=== PATIENT | female | born 1955 | race Hispanic/Latino ===

== ENCOUNTER 2021-01-04 12:39 | Inpatient (IN) | payer BC ==
[~2021-01-04] VITALS: Ht 149.9 cm; Wt 101.1 kg
[2021-01-04] MEDS ORDERED: 0.9%NACL 1000ML 1,000 ML IV ONE ×2 (13:18→18:20)
[2021-01-04 13:38] LABS: BASOPHILS % (AUTO) 0.3 % (0.0-5.0); EOSINOPHILS % (AUTO) 0.3 % (0.0-8.0); HEMATOCRIT 22.1 % (36-48); LYMPHOCYTES % (AUTO) 20.8 % (21.0-51.0); MEAN CORPUSCULAR HGB CONC 32.6 g/dL (32.0-36.0); MEAN CORPUSCULAR VOLUME 92.1 fL (79-99); MONOCYTES % (AUTO) 3.8 % (3.0-13.0); NEUTROPHILS % (AUTO) 74.4 % (40.0-77.0); NUCLEATED RED BLOOD CELLS 0.2 % (0.0-0.19); PLATELET COUNT (AUTO) 105 K/uL (130-400); RED CELL DISTRIBUTION WIDTH 15.9 % (11.0-15.5); WHITE BLOOD COUNT (AUTO) 11.3 K/uL (4.8-10.8)
[2021-01-04 13:49] LABS: CREATININE 0.7 mg/dL (0.5-1.5); POTASSIUM 3.8 mmol/L (3.5-5.1)
[2021-01-04 13:53] LABS: ALBUMIN 2.7 g/dL (3.5-5.0); BILIRUBIN,TOTAL 0.5 mg/dL (0.2-1.0); TOTAL PROTEIN, SERUM 6.1 g/dL (6.0-8.3)
[2021-01-04] MEDS ORDERED: PANTOPRAZOLE 40 MG/VIAL ONE ×2 (14:51→15:42)
[2021-01-04] MEDS ORDERED: OCTREOTIDE ACETATE 100 MCG/ML AMP IV SCH (15:00)
[2021-01-04] MEDS ORDERED: PANTOPRAZOLE 40 MG/VIAL IVP SCH (15:00)
[2021-01-04 15:52] LABS: APPEARANCE,URINE Clear (CLEAR); BILIRUBIN,URINE Negative (NEGATIVE); COLOR,URINE Yellow (YELLOW); GLUCOSE, URINE (UA) Negative (NEGATIVE); KETONES,URINE 15 mg/dL (NEGATIVE); LEUKOCYTE ESTERASE ,URINE Negative (NEGATIVE); NITRATE,URINE Negative (NEGATIVE); OCCULT BLOOD,URINE Negative (NEGATIVE); PROTEIN,URINE Negative (NEGATIVE); UROBILINOGEN,URINE 0.2 mg/dL (0.2-1.0)
[2021-01-04 15:59] LABS: AMPHET/METH SCREEN,URINE NEGATIVE (NEGATIVE); BARBITURATE SCREEN, URINE NEGATIVE (NEGATIVE); BENZODIAZEPINES SCREEN,URINE NEGATIVE (NEGATIVE); CANNABINOID SCREEN,URINE NEGATIVE (NEGATIVE); COCAINE SCREEN,URINE NEGATIVE (NEGATIVE); OPIATE SCREEN,URINE NEGATIVE (NEGATIVE); PHENCYCLIDINE SCREEN,URINE NEGATIVE (NEGATIVE)
[2021-01-04] MEDS ORDERED: GLUCAGON 1MG KIT 1 MG ML IM PRN (16:00)
[2021-01-04] MEDS ORDERED: DEXTROSE 50%-WATER 50 ML DISP.SYRIN IV PRN (16:00)
[2021-01-04 16:21] LABS: INR 1.2 (0.85-1.15); PROTHROMBIN TIME 12.9 SEC (9.6-11.6)
[2021-01-04 16:23] LABS: PARTIAL THROMBOPLASTIN TIME 21.5 SEC (26.3-35.5)
[2021-01-04] MEDS ORDERED: INSULIN HUMULIN R 100 UNIT/ML 3ML SQ SCH (16:30)
[2021-01-04 16:39] LABS: HEMOGLOBIN A1C 7.1 % (4.0-6.0)
[2021-01-04] MEDS ORDERED: 0.9% NACL 250ML 250 ML IV ONE (18:50)
[2021-01-04] MEDS ORDERED: OCTREOTIDE ACETATE 100 MCG/ML AMP ONE (19:46)
[2021-01-04] MEDS ORDERED: 0.9%NACL 50ML 50 ML IV ONE (19:47)
[2021-01-04] MEDS: LEVOFLOXACIN 500 MG/D5W 100 ML 100 ML IV SCH (21:05)
[2021-01-04] MEDS: INSULIN HUMULIN R 100 UNIT/ML 3ML SQ SCH ×2 (21:06→23:31)
[2021-01-04 21:29] VITALS: BP 118/63
[2021-01-04 21:48] VITALS: BP 122/62
[2021-01-04 22:00] VITALS: BP 121/41
[2021-01-04] MEDS: METRONIDAZOLE 500MG/100ML BAG 100 ML IVPB SCH (22:16)
[2021-01-04] MEDS: OCTREOTIDE ACETATE 1,250 MCG in 0.9% NACL 250ML 250 ML IV SCH (22:18)
[2021-01-04] MEDS: 0.9%NACL 1000ML 1,000 ML IV SCH (22:19)
[2021-01-04 22:22] VITALS: BP 111/59
[2021-01-04] MEDS: PANTOPRAZOLE 40MG INJ 80 MG in 0.9%NACL 100ML 100 ML IVP SCH (22:48)
[2021-01-04 22:49] VITALS: BP 115/60
[2021-01-04 23:00] VITALS: BP 138/78
[2021-01-04 23:02] LABS: HEMATOCRIT 26.1 % (36-48)
[2021-01-05] VITALS (31 sets, daily range): BP systolic 93–154; BP diastolic 40–106
[2021-01-05 00:37] LABS: HEMATOCRIT 24.6 % (36-48)
[2021-01-05] MEDS: 0.9%NACL 1000ML 1,000 ML IV SCH (03:27)
[2021-01-05] MEDS: METRONIDAZOLE 500MG/100ML BAG 100 ML IVPB SCH ×3 (05:20→21:02)
[2021-01-05] MEDS: INSULIN HUMULIN R 100 UNIT/ML 3ML SQ SCH ×3 (06:00→20:41)
[2021-01-05 06:12] LABS: HEMATOCRIT 23.6 % (36-48)
[2021-01-05 06:24] LABS: CREATININE 0.7 mg/dL (0.5-1.5); POTASSIUM 3.9 mmol/L (3.5-5.1)
[2021-01-05] MEDS: PANTOPRAZOLE 40MG INJ 80 MG in 0.9%NACL 100ML 100 ML IVP SCH (08:15)
[2021-01-05] MEDS ORDERED: PROPOFOL 10 MG/ML 20ML VIAL IV ONE ×2 (11:09→11:29)
[2021-01-05] MEDS ORDERED: SUCCINYLCHOLINE 200MG/10ML SYR ONE (11:09)
[2021-01-05] MEDS ORDERED: GLYCOPYRROLATE 1 MG/5 ML SYRINGE ONE (11:11)
[2021-01-05] MEDS ORDERED: LIDOCAINE HCL 1% 20 ML VIAL ONE (11:12)
[2021-01-05] MEDS ORDERED: EPINEPHRINE PF 1MG AMP ONE (11:27)
[2021-01-05 13:27] LABS: BASOPHILS % (AUTO) 0.3 % (0.0-5.0); EOSINOPHILS % (AUTO) 0.5 % (0.0-8.0); HEMATOCRIT 23.2 % (36-48); LYMPHOCYTES % (AUTO) 21.3 % (21.0-51.0); MEAN CORPUSCULAR HEMOGLOBIN 29.8 pg (27.0-33.0); MEAN CORPUSCULAR HGB CONC 33.6 g/dL (32.0-36.0); MEAN CORPUSCULAR VOLUME 88.5 fL (79-99); MONOCYTES % (AUTO) 6.1 % (3.0-13.0); NEUTROPHILS % (AUTO) 71.4 % (40.0-77.0); NUCLEATED RED BLOOD CELLS 0.3 % (0.0-0.19); PLATELET COUNT (AUTO) 103 K/uL (130-400); RED BLOOD CELL COUNT(AUTO) 2.62 MIL/uL (4.00-5.50); RED CELL DISTRIBUTION WIDTH 16.4 % (11.0-15.5); WHITE BLOOD COUNT (AUTO) 7.5 K/uL (4.8-10.8)
[2021-01-05] MEDS: LEVOFLOXACIN 500 MG/D5W 100 ML 100 ML IV SCH (15:37)
[2021-01-05] MEDS: PANTOPRAZOLE 40 MG/VIAL IVP SCH (20:20)
[2021-01-05 21:29] LABS: BASOPHILS % (AUTO) 0.3 % (0.0-5.0); EOSINOPHILS % (AUTO) 0.6 % (0.0-8.0); LYMPHOCYTES % (AUTO) 23.5 % (21.0-51.0); MEAN CORPUSCULAR HEMOGLOBIN 29.9 pg (27.0-33.0); MEAN CORPUSCULAR HGB CONC 33.8 g/dL (32.0-36.0); MEAN CORPUSCULAR VOLUME 88.6 fL (79-99); MONOCYTES % (AUTO) 5.6 % (3.0-13.0); NEUTROPHILS % (AUTO) 69.5 % (40.0-77.0); NUCLEATED RED BLOOD CELLS 0.4 % (0.0-0.19); PLATELET COUNT (AUTO) 104 K/uL (130-400); RED BLOOD CELL COUNT(AUTO) 2.71 MIL/uL (4.00-5.50); RED CELL DISTRIBUTION WIDTH 16.2 % (11.0-15.5); WHITE BLOOD COUNT (AUTO) 7.7 K/uL (4.8-10.8)
[2021-01-06] VITALS (14 sets, daily range): BP systolic 104–136; BP diastolic 45–76
[2021-01-06 04:55] LABS: BASOPHILS % (AUTO) 0.2 % (0.0-5.0); EOSINOPHILS % (AUTO) 1.3 % (0.0-8.0); HEMATOCRIT 23.1 % (36-48); LYMPHOCYTES % (AUTO) 31.3 % (21.0-51.0); MEAN CORPUSCULAR HEMOGLOBIN 29.2 pg (27.0-33.0); MEAN CORPUSCULAR HGB CONC 32.9 g/dL (32.0-36.0); MEAN CORPUSCULAR VOLUME 88.8 fL (79-99); MONOCYTES % (AUTO) 7.7 % (3.0-13.0); NEUTROPHILS % (AUTO) 59.1 % (40.0-77.0); NUCLEATED RED BLOOD CELLS 0.9 % (0.0-0.19); PLATELET COUNT (AUTO) 113 K/uL (130-400); WHITE BLOOD COUNT (AUTO) 4.7 K/uL (4.8-10.8)
[2021-01-06] MEDS: METRONIDAZOLE 500MG/100ML BAG 100 ML IVPB SCH ×3 (05:08→20:43)
[2021-01-06 05:16] LABS: ALBUMIN 2.6 g/dL (3.5-5.0); BILIRUBIN,TOTAL 0.4 mg/dL (0.2-1.0); CREATININE 0.5 mg/dL (0.5-1.5); POTASSIUM 3.5 mmol/L (3.5-5.1)
[2021-01-06 08:14] LABS: HEPATITIS B CORE IGM Negative (Negative); HEPATITIS Bs ANTIGEN SCREEN P Negative (Negative)
[2021-01-06] MEDS: PANTOPRAZOLE 40 MG/VIAL IVP SCH ×2 (08:46→20:35)
[2021-01-06] MEDS: INSULIN HUMULIN R 100 UNIT/ML 3ML SQ SCH ×4 (08:49→20:43)
[2021-01-06 09:01] LABS: BASOPHILS % (AUTO) 0.2 % (0.0-5.0); EOSINOPHILS % (AUTO) 1.2 % (0.0-8.0); HEMATOCRIT 23.7 % (36-48); LYMPHOCYTES % (AUTO) 29.9 % (21.0-51.0); MEAN CORPUSCULAR HEMOGLOBIN 29.8 pg (27.0-33.0); MEAN CORPUSCULAR HGB CONC 33.3 g/dL (32.0-36.0); MEAN CORPUSCULAR VOLUME 89.4 fL (79-99); MONOCYTES % (AUTO) 7.1 % (3.0-13.0); NEUTROPHILS % (AUTO) 61.2 % (40.0-77.0); NUCLEATED RED BLOOD CELLS 0.5 % (0.0-0.19); PLATELET COUNT (AUTO) 101 K/uL (130-400); RED BLOOD CELL COUNT(AUTO) 2.65 MIL/uL (4.00-5.50); RED CELL DISTRIBUTION WIDTH 16.5 % (11.0-15.5); WHITE BLOOD COUNT (AUTO) 5.7 K/uL (4.8-10.8)
[2021-01-06] MEDS: LACTULOSE 20 GM/30 ML UDCUP PO SCH ×2 (09:23→20:35)
[2021-01-06] MEDS ORDERED: LEVO75 PO (10:06)
[2021-01-06] MEDS ORDERED: LOSA50TA64 PO (10:06)
[2021-01-06] MEDS ORDERED: ROSU10TA28 PO (10:06)
[2021-01-06] MEDS ORDERED: GLIM4TAB36 PO (10:06)
[2021-01-06] MEDS ORDERED: REPA1TAB5 PO (10:06)
[2021-01-06] MEDS ORDERED: AMLO-257 PO (10:06)
[2021-01-06] MEDS ORDERED: FOLI1 PO (10:06)
[2021-01-06] MEDS ORDERED: FAMO40TA7 PO (10:06)
[2021-01-06] MEDS ORDERED: HYDR12.54 PO (10:06)
[2021-01-06] MEDS ORDERED: METF-446 PO (10:06)
[2021-01-06] MEDS: LEVOFLOXACIN 500 MG/D5W 100 ML 100 ML IV SCH (15:21)
[2021-01-06 15:22] LABS: BASOPHILS % (AUTO) 0.4 % (0.0-5.0); EOSINOPHILS % (AUTO) 1.6 % (0.0-8.0); HEMATOCRIT 25.5 % (36-48); LYMPHOCYTES % (AUTO) 31.4 % (21.0-51.0); MEAN CORPUSCULAR HEMOGLOBIN 29.4 pg (27.0-33.0); MEAN CORPUSCULAR HGB CONC 32.9 g/dL (32.0-36.0); MEAN CORPUSCULAR VOLUME 89.2 fL (79-99); MONOCYTES % (AUTO) 7.2 % (3.0-13.0); NUCLEATED RED BLOOD CELLS 0.6 % (0.0-0.19); PLATELET COUNT (AUTO) 99 K/uL (130-400); RED BLOOD CELL COUNT(AUTO) 2.86 MIL/uL (4.00-5.50); RED CELL DISTRIBUTION WIDTH 16.5 % (11.0-15.5); WHITE BLOOD COUNT (AUTO) 6.8 K/uL (4.8-10.8)
[2021-01-06] MEDS: OCTREOTIDE ACETATE 1,250 MCG in 0.9% NACL 250ML 250 ML IV SCH (17:20)
[2021-01-06] MEDS ORDERED: ATORVASTATIN 20 MG TABLET PO SCH (21:00)
[2021-01-06 21:55] LABS: BASOPHILS % (AUTO) 0.4 % (0.0-5.0); HEMATOCRIT 23.8 % (36-48); LYMPHOCYTES % (AUTO) 39.5 % (21.0-51.0); MEAN CORPUSCULAR HEMOGLOBIN 29.6 pg (27.0-33.0); MEAN CORPUSCULAR HGB CONC 33.2 g/dL (32.0-36.0); MEAN CORPUSCULAR VOLUME 89.1 fL (79-99); MONOCYTES % (AUTO) 8.6 % (3.0-13.0); NEUTROPHILS % (AUTO) 49.1 % (40.0-77.0); NUCLEATED RED BLOOD CELLS 0.6 % (0.0-0.19); PLATELET COUNT (AUTO) 116 K/uL (130-400); RED BLOOD CELL COUNT(AUTO) 2.67 MIL/uL (4.00-5.50); RED CELL DISTRIBUTION WIDTH 16.2 % (11.0-15.5); WHITE BLOOD COUNT (AUTO) 5.4 K/uL (4.8-10.8)
[2021-01-07 04:35] LABS: BASOPHILS % (AUTO) 0.6 % (0.0-5.0); EOSINOPHILS % (AUTO) 2.5 % (0.0-8.0); HEMATOCRIT 22.6 % (36-48); LYMPHOCYTES % (AUTO) 41.4 % (21.0-51.0); MEAN CORPUSCULAR HEMOGLOBIN 29.2 pg (27.0-33.0); MEAN CORPUSCULAR HGB CONC 32.7 g/dL (32.0-36.0); MEAN CORPUSCULAR VOLUME 89.3 fL (79-99); MONOCYTES % (AUTO) 8.4 % (3.0-13.0); NEUTROPHILS % (AUTO) 46.9 % (40.0-77.0); NUCLEATED RED BLOOD CELLS 0.6 % (0.0-0.19); PLATELET COUNT (AUTO) 103 K/uL (130-400); RED BLOOD CELL COUNT(AUTO) 2.53 MIL/uL (4.00-5.50); RED CELL DISTRIBUTION WIDTH 16.1 % (11.0-15.5); WHITE BLOOD COUNT (AUTO) 4.8 K/uL (4.8-10.8)
[2021-01-07 04:55] VITALS: BP 132/42
[2021-01-07 05:04] LABS: ALBUMIN 2.5 g/dL (3.5-5.0); BILIRUBIN,TOTAL 0.4 mg/dL (0.2-1.0); CREATININE 0.6 mg/dL (0.5-1.5); POTASSIUM 3.4 mmol/L (3.5-5.1); TOTAL PROTEIN, SERUM 5.5 g/dL (6.0-8.3)
[2021-01-07] MEDS: INSULIN HUMULIN R 100 UNIT/ML 3ML SQ SCH ×2 (06:07→13:35)
[2021-01-07] MEDS: METRONIDAZOLE 500MG/100ML BAG 100 ML IVPB SCH (06:07)
[2021-01-07] MEDS ORDERED: LEVOTHYROXINE 75 MCG TABLET PO SCH (06:30)
[2021-01-07 08:00] VITALS: BP 110/54
[2021-01-07 09:02] LABS: BASOPHILS % (AUTO) 0.5 % (0.0-5.0); EOSINOPHILS % (AUTO) 1.8 % (0.0-8.0); HEMATOCRIT 25.8 % (36-48); LYMPHOCYTES % (AUTO) 37.1 % (21.0-51.0); MEAN CORPUSCULAR HEMOGLOBIN 29.6 pg (27.0-33.0); MEAN CORPUSCULAR HGB CONC 32.9 g/dL (32.0-36.0); MEAN CORPUSCULAR VOLUME 89.9 fL (79-99); MONOCYTES % (AUTO) 6.8 % (3.0-13.0); NEUTROPHILS % (AUTO) 53.5 % (40.0-77.0); NUCLEATED RED BLOOD CELLS 0.5 % (0.0-0.19); PLATELET COUNT (AUTO) 132 K/uL (130-400); RED BLOOD CELL COUNT(AUTO) 2.87 MIL/uL (4.00-5.50); RED CELL DISTRIBUTION WIDTH 16.8 % (11.0-15.5); WHITE BLOOD COUNT (AUTO) 6.1 K/uL (4.8-10.8)
[2021-01-07] MEDS: PANTOPRAZOLE 40 MG/VIAL IVP SCH (09:41)
[2021-01-07] MEDS: LACTULOSE 20 GM/30 ML UDCUP PO SCH (09:42)
[2021-01-07] MEDS ORDERED: PANT40TA55 PO (11:59)
[2021-01-07] MEDS ORDERED: LACT10SO9 PO (11:59)
[2021-01-07] MEDS ORDERED: LEVO500T90 PO (11:59)
[2021-01-07 12:07] VITALS: BP 129/60
[2021-01-07] MEDS ORDERED: KCL 20 MEQ ERTAB PO ONE (13:27)
[2021-01-07] MEDS ORDERED: KCL 20 MEQ ERTAB PO SCH (13:30)
== END 2021-01-07 15:00 | disposition home or self-care (01) | DRG 432 ==
LOC: EDH 12:39 → EDHIP 15:00 → 2DH 21:50 → 4CH 01-06 16:10
PROVIDERS: ADMIT Internal Medicine; ATTEND Internal Medicine
PROC: 30233N1 Transfusion of Nonautologous Red Blood Cells into Peripheral Vein, Percutaneous Approach (ICD-10-PCS; 2021-01-04)
PROC: 06L38CZ Occlusion of Esophageal Vein with Extraluminal Device, Via Natural or Artificial Opening Endoscopic (ICD-10-PCS; principal; 2021-01-05)
DX: K74.60 Unspecified cirrhosis of liver (principal); I85.11 Secondary esophageal varices with bleeding; D62 Acute posthemorrhagic anemia; Z68.42 Body mass index [BMI] 45.0-49.9, adult; K22.10 Ulcer of esophagus without bleeding; K52.9 Noninfective gastroenteritis and colitis, unspecified; I95.9 Hypotension, unspecified; D69.6 Thrombocytopenia, unspecified; Z20.822 Contact with and (suspected) exposure to COVID-19; E11.9 Type 2 diabetes mellitus without complications; E78.5 Hyperlipidemia, unspecified; E89.0 Postprocedural hypothyroidism; I10 Essential (primary) hypertension; K21.00 Gastro-esophageal reflux disease with esophagitis, without bleeding; E66.01 Morbid (severe) obesity due to excess calories; K29.70 Gastritis, unspecified, without bleeding; K80.20 Calculus of gallbladder without cholecystitis without obstruction; Z87.11 Personal history of peptic ulcer disease; Z88.0 Allergy status to penicillin; Z88.8 Allergy status to other drugs, medicaments and biological substances
CPT/HCPCS: 36415; 43244; 71045; 74176; 76705; 80048; 80053; 80074; 80305; 81003; 82150; 82270; 82728; 82948; 83036; 83540; 83550; 83605; 83690; 84443; 84484; 85014; 85018; 85025; 85384; 85610; 85730; 86850; 86900; 86901; 86922; 87426; 93005; 99291; A4606; C9113; G0378; J0171; J0330; J1815; J1956; J2354; J2704; J3490; J7030; J7050; P9016; U0003